=== PATIENT | female | born 1970 | race Caucasian/White ===

== ENCOUNTER → 2018-09-13 16:37 | Outpatient (CLI) | payer MEDICARE ==
[2014-07-30 12:58] VITALS: BMI 37.5
[~2018-09-13 16:37] MED LIST: ALDACTONE25 MG PO; CHRONULAC30 ML PO; CLARITIN-D1 TAB.SR1 PO; POTASSIUM99 M1 PO; PRILOSEC20 MG PO; XIFAXAN200 MG PO
== END | disposition home or self-care (01) ==
LOC: D.MAMMO 15:45
DX: Z12.31 Encounter for screening mammogram for malignant neoplasm of breast (principal)

== ENCOUNTER 2019-01-30 11:10 | Emergency (ER) | payer MEDICARE ==
[~2019-01-30] VITALS: Ht 154.9 cm; Wt 79.8 kg
[2019-01-30 12:01] VITALS: BP 132/83; Ht 154.9 cm; Wt 79.8 kg
[2019-01-30 12:42] LABS: HEMOGLOBIN 12.7 g/dL (12-16); MCH 27.5 pg (26.0-34.0); MCHC 34.3 g/dL (31.0-37.0); MCV 80.1 fL (80.0-100.0); PLATELET COUNT 65 10x3/uL (130-400); RBC 4.62 10x6/uL (4.00-5.40); RDW 15.3 % (11.5-14.5); WBC 3.1 10x3/uL (4.8-10.8)
[2019-01-30 12:49] LABS: ALBUMIN 2.8 g/dL (3.4-5.0); ANION GAP 10.1 mmol/L (8-16); BILIRUBIN - TOTAL 1.82 mg/dL (0.2-1.3); CALCIUM 8.4 mg/dL (8.5-10.1); CARBON DIOXIDE 27.2 mmol/L (21.0-32.0); CREATININE - SERUM 1.1 mg/dL (0.6-1.3); POTASSIUM - SERUM 4.3 mmol/L (3.5-5.1); PROTEIN - SERUM 5.9 g/dL (6.4-8.2)
[2019-01-30 13:31] LABS: EOSINOPHILS 3 % (0-7); LYMPHOCYTES 38 % (15-50); MONOCYTES 6 % (2-11); NEUTROPHILS 50 % (40-80); PLATELET ESTIMATE DECREASED
[2019-01-30 13:32] LABS: ANISOCYTOSIS OCC
[2019-01-30 14:36] LABS: APPEARANCE HAZY (CLEAR); BILIRUBIN NEGATIVE (NEGATIVE); COLOR YELLOW (YELLOW); GLUCOSE NEGATIVE (NEGATIVE); KETONE NEGATIVE (NEGATIVE); NITRITE NEGATIVE (NEGATIVE); PROTEIN NEGATIVE (NEGATIVE); SPECIFIC GRAVITY 1.005 (1.005-1.020)
[2019-01-30 14:37] LABS: BACTERIA MODERATE /hpf (NONE SEEN); EPITHELIAL CELLS 0-5 /hpf (0-5); MUCUS <1+ /lpf (NONE SEEN); WHITE CELLS - URINE OCC /hpf (0-5)
== END 2019-01-30 15:11 | disposition left against medical advice (07) ==
LOC: D.ER 11:10
PROVIDERS: Family Medicine
DX: E72.20 Disorder of urea cycle metabolism, unspecified (principal); K74.60 Unspecified cirrhosis of liver; R41.82 Altered mental status, unspecified

== ENCOUNTER 2019-02-03 05:50 | Emergency (ER) | payer MEDICARE ==
[~2019-02-03] VITALS: Ht 154.9 cm; Wt 81.6 kg
[2019-02-03 05:55] VITALS: Ht 154.9 cm; Wt 81.6 kg
[2019-02-03 06:48] LABS: INR 1.48 (0.85-1.17); PROTIME 17.3 SECONDS (11.6-15.0)
[2019-02-03 06:52] LABS: APPEARANCE CLEAR (CLEAR); BILIRUBIN NEGATIVE (NEGATIVE); COLOR YELLOW (YELLOW); GLUCOSE NEGATIVE (NEGATIVE); KETONE NEGATIVE (NEGATIVE); NITRITE NEGATIVE (NEGATIVE); PROTEIN NEGATIVE (NEGATIVE); SPECIFIC GRAVITY 1.005 (1.005-1.020); UROBILINOGEN NORMAL (NORMAL)
[2019-02-03 06:58] LABS: ALBUMIN 2.7 g/dL (3.4-5.0); ALKALINE PHOSPHATASE 152 U/L (46-116); ALT (SGPT) 35 U/L (10-68); BILIRUBIN - TOTAL 1.79 mg/dL (0.2-1.3); CALC OSMOLALITY 277 mosm/kg (275-300); CALCIUM 8.4 mg/dL (8.5-10.1); CARBON DIOXIDE 22.7 mmol/L (21.0-32.0); CHLORIDE - SERUM 106 mmol/L (98-107); CREATININE - SERUM 1.1 mg/dL (0.6-1.3); GLUCOSE 106 mg/dL (74-106); POTASSIUM - SERUM 3.8 mmol/L (3.5-5.1); PROTEIN - SERUM 5.7 g/dL (6.4-8.2); SODIUM 139 mmol/L (136-145); UDS - AMPHET NEGATIVE QUAL (NEGATIVE); UDS - BARB NEGATIVE QUAL (NEGATIVE); UDS - BENZO NEGATIVE QUAL (NEGATIVE); UDS - COCAINE NEGATIVE QUAL (NEGATIVE); UDS - OPIATE NEGATIVE QUAL (NEGATIVE); UDS - PCP NEGATIVE QUAL (NEGATIVE); UDS - THC POSITIVE QUAL (NEGATIVE); UREA NITROGEN 12 mg/dL (7-18); eGFR NON AFRICAN AMERICAN 56 mL/min (90-120)
[2019-02-03 07:00] LABS: APTT 33.7 SECONDS (22.8-39.4); HEMATOCRIT 37.6 % (36.0-48.0); HEMOGLOBIN 12.8 g/dL (12-16); MCH 27.6 pg (26.0-34.0); PLATELET COUNT 61 10x3/uL (130-400); RBC 4.64 10x6/uL (4.00-5.40); RDW 15.6 % (11.5-14.5); WBC 2.4 10x3/uL (4.8-10.8)
[2019-02-03 07:15] LABS: CKMB 14.9 U/L (0.0-3.6); MAGNESIUM - SERUM 1.4 mg/dL (1.8-2.4)
[2019-02-03 07:16] LABS: CREATINE KINASE 882 UL (21-215)
[2019-02-03 07:46] LABS: LYMPHOCYTES 42 % (15-50); NEUTROPHILS 58 % (40-80)
[2019-02-03 07:47] LABS: PLATELET ESTIMATE DECREASED
[2019-02-03] MEDS ORDERED: CHRONULAC30 ML PO (09:37)
[2019-02-03 10:42] VITALS: BP 129/76
== END 2019-02-03 10:52 | disposition home or self-care (01) ==
LOC: D.ER 05:50
PROVIDERS: Family Medicine
DX: E72.20 Disorder of urea cycle metabolism, unspecified (principal); E83.42 Hypomagnesemia

== ENCOUNTER → 2019-02-14 15:06 | Outpatient (CLI) | payer MEDICARE ==
[2019-02-03 05:55] VITALS: BMI 37.5
== END | disposition home or self-care (01) ==
LOC: D.US 15:06
PROVIDERS: ATTEND Legal Medicine
DX: N83.209 Unspecified ovarian cyst, unspecified side (principal)

== ENCOUNTER 2019-05-16 05:23 | Emergency (ER) | payer MEDICARE ==
[~2019-05-16] VITALS: Ht 154.9 cm; Wt 78.6 kg
[2019-05-16 05:26] VITALS: Ht 154.9 cm; Wt 78.6 kg
[2019-05-16 06:03] LABS: BASOPHILS 0.5 % (0-2); HEMATOCRIT 33.1 % (36.0-48.0); HEMOGLOBIN 12.1 g/dL (12-16); IMMATURE GRANULOCYTES 0.5 % (0-5); LYMPHOCYTES 28.9 % (15-50); MCH 29.4 pg (26.0-34.0); MCHC 36.6 g/dL (31.0-37.0); MCV 80.3 fL (80.0-100.0); MONOCYTES 7.8 % (2-11); NEUTROPHILS 61.3 % (40-80); RBC 4.12 10x6/uL (4.00-5.40); RDW 15.5 % (11.5-14.5)
[2019-05-16 06:09] LABS: PLATELET COUNT 109 10x3/uL (130-400)
[2019-05-16 06:18] LABS: APTT 34.1 SECONDS (22.8-39.4); INR 1.39 (0.85-1.17); PROTIME 16.5 SECONDS (11.6-15.0)
[2019-05-16 06:22] LABS: ALBUMIN 2.8 g/dL (3.4-5.0); ALKALINE PHOSPHATASE 130 U/L (46-116); ALT (SGPT) 39 U/L (10-68); BILIRUBIN - TOTAL 1.79 mg/dL (0.2-1.3); CALC OSMOLALITY 264 mosm/kg (275-300); CALCIUM 8.2 mg/dL (8.5-10.1); CHLORIDE - SERUM 100 mmol/L (98-107); CREATININE - SERUM 1.1 mg/dL (0.6-1.3); GLUCOSE 114 mg/dL (74-106); POTASSIUM - SERUM 3.8 mmol/L (3.5-5.1); PROTEIN - SERUM 5.3 g/dL (6.4-8.2); SODIUM 132 mmol/L (136-145); UREA NITROGEN 11 mg/dL (7-18); eGFR NON AFRICAN AMERICAN 56 mL/min (90-120)
[2019-05-16 06:32] LABS: LIPASE 200 U/L (73-393); MAGNESIUM - SERUM 1.5 mg/dL (1.8-2.4); PRO BNP 210 pg/mL (0-125); THYROID STIMULATING HORMONE 3.68 uIU/mL (0.36-3.74); TROPONIN-I < 0.017 ng/mL (0.000-0.060)
[2019-05-16 06:50] VITALS: BP 114/59
== END 2019-05-16 06:48 | disposition home or self-care (01) ==
LOC: D.ER 05:23
PROVIDERS: Family Medicine
DX: K74.60 Unspecified cirrhosis of liver (principal); E72.20 Disorder of urea cycle metabolism, unspecified; D72.819 Decreased white blood cell count, unspecified

== ENCOUNTER 2019-10-31 12:28 | Emergency (ER) | payer MEDICAID ==
[~2019-10-31] VITALS: Ht 154.9 cm; Wt 82.5 kg
[2019-10-31 13:10] VITALS: Ht 154.9 cm; Wt 82.5 kg
[2019-10-31] MEDS ORDERED: VALTREX1000 MG PO (13:32)
[2019-10-31] MEDS ORDERED: PREDNISONE50 MG PO (13:32)
[2019-10-31 13:47] VITALS: BP 144/88
== END 2019-10-31 13:47 | disposition home or self-care (01) ==
LOC: D.ER 12:28
DX: B02.9 Zoster without complications (principal); I10 Essential (primary) hypertension; K74.60 Unspecified cirrhosis of liver